=== PATIENT | female | born 1970 | race Caucasian/White ===

== ENCOUNTER → 2024-10-04 16:32 | Outpatient (REF) | payer OTHER, SELFPAY | LOC: WDC 16:32 | PROVIDERS: ATTENDING PHYSICIAN Internal Medicine | DX: Z12.31 Encounter for screening mammogram for malignant neoplasm of breast (principal) | CPT/HCPCS: 77063; 77067 ==

== ENCOUNTER → 2024-10-07 09:14 | Outpatient (REF) | payer OTHER, SELFPAY | LOC: WDC 09:14 | PROVIDERS: ATTENDING PHYSICIAN Internal Medicine | DX: R92.8 Other abnormal and inconclusive findings on diagnostic imaging of breast (principal) | CPT/HCPCS: 76642 ==

== ENCOUNTER → 2024-10-10 08:04 | Outpatient (REF) | payer OTHER, SELFPAY ==
--- NOTE | 2024-10-11 08:50 | OID.BR.INTR ---
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
- -
Did not meet patient at time of biopsy. Will follow up per protocol.
== END ==
LOC: WDC 08:04
PROVIDERS: ATTENDING PHYSICIAN Internal Medicine
DX: N63.14 Unspecified lump in the right breast, lower inner quadrant (principal)
CPT/HCPCS: 88305; 19083; 88341; 88360; A4648

== ENCOUNTER → 2024-11-03 13:38 | Outpatient (REF) | payer OTHER, SELFPAY | LOC: WDC 13:38 | PROVIDERS: ATTENDING PHYSICIAN Surgery | DX: C50.411 Malignant neoplasm of upper-outer quadrant of right female breast (principal) | CPT/HCPCS: 19285; 38792; 76942; A4648; A9541 ==

== ENCOUNTER → 2024-11-17 08:15 | Outpatient (REF) | payer OTHER, SELFPAY | LOC: WDC 08:15 | PROVIDERS: ATTENDING PHYSICIAN Surgery | DX: C50.411 Malignant neoplasm of upper-outer quadrant of right female breast (principal) | CPT/HCPCS: 38792; 76942; A9541 ==

== ENCOUNTER 2024-11-18 06:35 | Day surgery (SDC) | payer OTHER, SELFPAY ==
[2024-11-18] VITALS (7 sets, daily range): BP systolic 146–172; BP diastolic 86–95; BMI 36.8
[2024-11-18] MEDS: TYLENOL 1000 MG PO (12:31)
[2024-11-18] MEDS: LOVENOX 40 MG SC (12:39)
[2024-11-18] MEDS: NORMOSOL-R/PLASMALYTE-A 1000 IV (12:41)
[2024-11-18] MEDS: VANCOCIN 530 MG IV (12:41)
== END 2024-11-18 16:05 | disposition home or self-care (01) ==
LOC: SDS 06:35
PROVIDERS: ATTENDING PHYSICIAN Surgery
DX: C50.411 Malignant neoplasm of upper-outer quadrant of right female breast (principal)
CPT/HCPCS: 38525; 19301; 38900; 88305; 88307; 88332; 76098; 88331; 88341; 88342; 88360; A4648

== ENCOUNTER 2025-06-30 06:12 | Day surgery (SDC) | payer OTHER, SELFPAY ==
[2025-06-23 14:03] VITALS: BMI 34.2
[2025-06-30] VITALS (9 sets, daily range): BP systolic 122–169; BP diastolic 73–110; BMI 34.2
[2025-06-30] MEDS: NORMOSOL-R/PLASMALYTE-A 1000 IV (08:29)
[2025-06-30 08:30] LABS: Glucose - Point of Care 104 mg/dl (70-99)
[2025-06-30] MEDS: TYLENOL 1000 MG PO (08:41)
[2025-06-30 10:30] LABS: Glucose - Point of Care 95 mg/dl (70-99)
[2025-06-30 11:10] LABS: Glucose - Point of Care 105 mg/dl (70-99)
== END 2025-06-30 13:09 | disposition home or self-care (01) ==
LOC: SDS 06:12
PROVIDERS: ATTENDING PHYSICIAN Specialist; FAMILY PHYSICIAN Internal Medicine
DX: S83.281A Other tear of lateral meniscus, current injury, right knee, initial encounter (principal); X58.XXXA Exposure to other specified factors, initial encounter; M22.40 Chondromalacia patellae, unspecified knee
CPT/HCPCS: 29881; 36415; 82962; 93005

== ENCOUNTER → 2025-10-05 15:36 | Outpatient (REF) | payer OTHER, SELFPAY | LOC: WDC 15:36 | PROVIDERS: ATTENDING PHYSICIAN Internal Medicine | DX: Z12.31 Encounter for screening mammogram for malignant neoplasm of breast (principal) | CPT/HCPCS: 77063; 77067 ==